=== PATIENT | female | born 1980 | race Caucasian/White ===

== ENCOUNTER → 2016-08-08 | Outpatient (CLI) | payer BC ==
[~2016-08-08] MED LIST: GADAVIST IV PRN
--- NOTE | 2016-08-08 19:38 | DIAGNOSTIC IMAGING REPORT ---
MRI OF THE BRAIN COMBO CLINICAL HISTORY: Headaches. COMPARISON STUDY: No priors. TECHNIQUE: MRI of the brain was performed utilizing various T1 and T2-weighted sequences in the axial, sagittal, and coronal planes. Contrast-enhanced sequences were acquired following the administration of 11 cc of Gadavist. FINDINGS: Brain parenchyma: The brain parenchyma is normal in appearance. There is no hemorrhage or mass effect. There is no restricted diffusion to suggest acute ischemia. No enhancing mass lesion is identified on the postcontrast images. Mccann-white matter differentiation is preserved. No extra-axial fluid collection is seen. The cerebellar tonsils are normal in configuration. Ventricles, sulci, and cisterns: Normal in configuration. Pituitary and sella: Unremarkable. Intracranial vasculature: Normal flow voids are maintained at the skull base. Orbits: The bony orbits are grossly intact. Orbital contents are normal in appearance. Sinuses and mastoids: Clear. Calvarium: Unremarkable. Soft tissues: Scattered sebaceous cysts are incidentally noted. The largest is in the frontal scalp the vertex and measures 9 mm. Cervical cord: Partially visualized cervical spinal cord is normal in morphology and signal intensity. IMPRESSION: No acute intracranial abnormality. Electronically signed by: Alonzo Olsen M.D. 08/08/2016 7:37 PM Dictated Date/Time: 08/08/2016 7:33 PM
== END | disposition home or self-care (01) ==
LOC: C.MRI 17:50
PROVIDERS: ATTEND Psychiatry & Neurology Neurology
DX: G43.909 Migraine, unspecified, not intractable, without status migrainosus (principal); R51 Headache

== ENCOUNTER → 2017-02-15 | Outpatient (CLI) | payer BC ==
[2017-02-18 20:36] LABS: GLUTAMIC ACID DECARBOXYLASE-65 85 IU/mL (<5); ISLET CELL AB POSITIVE (NEGATIVE); ISLET CELL AB TITER 80 JDF units
== END | disposition home or self-care (01) ==
LOC: C.LAB1850 12:02
PROVIDERS: ATTEND Internal Medicine Endocrinology, Diabetes & Metabolism
DX: E11.65 Type 2 diabetes mellitus with hyperglycemia (principal)

== ENCOUNTER 2017-09-27 12:01 | Emergency (ER) | payer BC ==
[~2017-09-27] VITALS: Ht 165.1 cm; Wt 103.8 kg
[2017-09-27 12:07] VITALS: TEMP 36.7; Ht 165.1 cm; Wt 103.8 kg
[2017-09-27] MEDS ORDERED: SODIUM CHLORIDE 0.9% 1000ML 2,000 ML IV STA (12:26)
[2017-09-27 12:55] LABS: BASO % 0.5 %; BASO ABS # 0.03 K/uL (0-0.2); EOS % 3.5 %; EOS ABS # 0.22 K/uL (0-0.5); HEMATOCRIT 43.3 % (37-47); HEMOGLOBIN 15.1 g/dL (12.0-16.0); IG# 0.01 K/uL (0.00-0.02); LYMPH % 34.5 %; LYMPH ABS # 2.18 K/uL (1.2-3.4); MEAN CELL VOLUME 78.6 fL (80-100); MEAN CORPUSCULAR HEMOGLOBIN 27.4 pg (25-34); MEAN CORPUSCULAR HGB CONC 34.9 g/dl (32-36); MEAN PLATELET VOLUME 10.2 fL (7.4-10.4); MONO ABS # 0.38 K/uL (0.11-0.59); NEUT % 55.3 %; PLATELET COUNT 257 K/uL (130-400); RED CELL DISTRIBUTION WIDTH SD 39.1 fL (36.4-46.3); WHITE BLOOD COUNT 6.32 K/uL (4.8-10.8)
--- NOTE | 2017-09-27 12:59 | DIAGNOSTIC IMAGING REPORT ---
CHEST ONE VIEW PORTABLE CLINICAL HISTORY: Weakness, hyperglycemia. COMPARISON STUDY: No previous studies for comparison. FINDINGS: The cardiac and mediastinal contours are normal. There is no evidence of focal pulmonary consolidation. There is no evidence of failure. No pleural effusions are visualized.[ There are minor subsegmental atelectatic changes at the right lung base. IMPRESSION: No active disease in the chest. Electronically signed by: Jerry Vega M.D. 09/27/2017 12:58 PM Dictated Date/Time: 09/27/2017 12:57 PM
[2017-09-27 13:21] LABS: ALBUMIN 4.1 gm/dl (3.4-5.0); CALCIUM 8.9 mg/dl (8.5-10.1); CREATININE 1.09 mg/dl (0.60-1.20); POTASSIUM 3.9 mmol/L (3.5-5.1); TOTAL PROTEIN 7.6 gm/dl (6.4-8.2)
[2017-09-27] MEDS ORDERED: NovoLIN-R INSULIN PER UNIT CHARGE IV STA (13:47)
[2017-09-27] MEDS ORDERED: INSDGI SC (14:46)
[2017-09-27] MEDS ORDERED: LEVO200T PO (14:46)
[2017-09-27] MEDS ORDERED: NORT50CA PO (14:46)
[2017-09-27] MEDS ORDERED: NVLGI7030 SC (14:46)
[2017-09-27 14:57] VITALS: BP 141/99; PULSE 89; O2SAT 98
--- NOTE | 2017-09-27 18:22 | EMERGENCY ROOM VISIT NOTE ---
History Report prepared by Celia: Steve Toledo Under the Supervision of: Dr. Archie Raya D.O. First contact with patient: 12:16 Chief Complaint: HYPERGLYCEMIA Stated Complaint: HIGH BLOOD SUGAR & KETONES, TYPE 1 DIABETIC History of Present Illness The patient is a 37 year old female who presents to the Emergency Room with complaints of constant hyperglycemia beginning a few days ago. She has a history of Type I diabetes and was diagnosed a little over a year ago. She states that she spoke with her PCP over the phone and was told to present to the ED. The patient states that her blood sugar has been running in the 300 to 500's. She has been peeing more frequently and has been much more thirsty. She has no pain. She has absolutely no other complaints. She states that she has had ketones in her urine recently. She also complains of nausea, fatigue and increased urinary frequency. Pt denies headache, change in vision, fevers, chest pain, shortness of breath, sore throat, vomiting, diarrhea, pain with urination, rashes, and melena. She notes that she recently had her sliding scale insulin dose increased (10 to 13). She has a history of hysterectomy. Source of History: patient Onset: A few days ago Symptom Intensity: blood sugar in the 300 to 500's Quality: other (hyperglycemia) Timing: constant Associated Symptoms: + nausea, + urinary symptoms (increased frequency), No fevers, No headache, No sorethroat, No chest pain, No SOB, No vomiting, No melena, No diarrhea Review of Systems See HPI for pertinent positives & negatives. A total of 10 systems reviewed and were otherwise negative. Past Medical & Surgical Medical Problems: (1) Type I diabetes mellitus Family History No pertinent family history stated. Social History Smoking Status: Never Smoker Housing Status: lives with family Occupation Status: employed Current/Historical Medications Scheduled Insulin Aspart 70/30 (Novolog Mix 70/30), 13 UNITS SC WM Insulin Glargine (Lantus), 39 UNITS SC QPM Levothyroxine Sodium (Synthroid), 200 MCG PO DAILY Nortriptyline (Pamelor), 50 MG PO QAM Allergies Coded Allergies: Amoxicillin (Unverified Adverse Reaction, Severe, HIVES, 09/27/17) Cefuroxime (Unverified Adverse Reaction, Severe, HIVES, 09/27/17) Ciprofloxacin (Unverified Adverse Reaction, Severe, HIVES, 09/27/17) Erythromycin (Unverified Adverse Reaction, Severe, HIVES, 09/27/17) Iodinated Diagnostic Agents (Unverified Adverse Reaction, Severe, NAUSEA, 09/27/17) Sulfamethoxazole w/Trimethoprim (Unverified Adverse Reaction, Severe, HIVES, 09/27/17) Physical Exam Vital Signs Date Time Temp Pulse Resp B/P (MAP) Pulse Ox O2 Delivery O2 Flow Rate FiO2 09/27/17 14:57 89 16 141/99 98 09/27/17 13:38 95 18 132/85 98 Room Air 09/27/17 12:07 36.7 108 20 152/98 98 Room Air Physical Exam GENERAL: Sitting up in bed, alert, well appearing, well nourished, no distress, non-toxic EYE EXAM: normal conjunctiva. OROPHARYNX: no exudate, no erythema, lips, buccal mucosa, and tongue normal and mucous membranes are moist NECK: supple, no nuchal rigidity, no adenopathy, non-tender LUNGS: Clear to auscultation. Normal chest wall mechanics HEART: no murmurs, S1 normal and S2 normal ABDOMEN: abdomen soft, non-tender, normo-active bowel sounds, no masses, no rebound or guarding. BACK: Back is symmetrical on inspection and there is no deformity, no midline tenderness, no CVA tenderness. SKIN: no rashes and no bruising UPPER EXTREMITIES: upper extremities are grossly normal. LOWER EXTREMITIES: No pitting edema. NEURO EXAM: Normal sensorium, cranial nerves II-XII grossly intact, normal speech, no gross weakness of arms, no gross weakness of legs. Medical Decision & Procedures ER Provider Diagnostic Interpretation: Radiology results as stated below per my review and the radiologist's interpretation: CHEST ONE VIEW PORTABLE FINDINGS: The cardiac and mediastinal contours are normal. There is no evidence of focal pulmonary consolidation. There is no evidence of failure. No pleural effusions are visualized.[ There are minor subsegmental atelectatic changes at the right lung base. IMPRESSION: No active disease in the chest. Electronically signed by: Jerry Vega M.D. 09/27/2017 12:58 PM Laboratory Results 09/27/17 12:40 Red Blood Count 5.51, Mean Corpuscular Volume 78.6, Mean Corpuscular Hemoglobin 27.4, Mean Corpuscular Hemoglobin Concent 34.9, Mean Platelet Volume 10.2, Neutrophils (%) (Auto) 55.3, Lymphocytes (%) (Auto) 34.5, Monocytes (%) (Auto) 6.0, Eosinophils (%) (Auto) 3.5, Basophils (%) (Auto) 0.5, Neutrophils # (Auto) 3.50, Lymphocytes # (Auto) 2.18, Monocytes # (Auto) 0.38, Eosinophils # (Auto) 0.22, Basophils # (Auto) 0.03 09/27/17 12:40 Test 09/27/17 12:40 09/27/17 13:18 09/27/17 14:37 White Blood Count 6.32 K/uL (4.8-10.8) Red Blood Count 5.51 M/uL (4.2-5.4) Hemoglobin 15.1 g/dL (12.0-16.0) Hematocrit 43.3 % (37-47) Mean Corpuscular Volume 78.6 fL (80-100) Mean Corpuscular Hemoglobin 27.4 pg (25-34) Mean Corpuscular Hemoglobin Concent 34.9 g/dl (32-36) Platelet Count 257 K/uL (130-400) Mean Platelet Volume 10.2 fL (7.4-10.4) Neutrophils (%) (Auto) 55.3 % Lymphocytes (%) (Auto) 34.5 % Monocytes (%) (Auto) 6.0 % Eosinophils (%) (Auto) 3.5 % Basophils (%) (Auto) 0.5 % Neutrophils # (Auto) 3.50 K/uL (1.4-6.5) Lymphocytes # (Auto) 2.18 K/uL (1.2-3.4) Monocytes # (Auto) 0.38 K/uL (0.11-0.59) Eosinophils # (Auto) 0.22 K/uL (0-0.5) Basophils # (Auto) 0.03 K/uL (0-0.2) RDW Standard Deviation 39.1 fL (36.4-46.3) RDW Coefficient of Variation 14.0 % (11.5-14.5) Immature Granulocyte % (Auto) 0.2 % Immature Granulocyte # (Auto) 0.01 K/uL (0.00-0.02) Urine Color YELLOW Urine Appearance ERROR (CLEAR) Urine pH 5.0 (4.5-7.5) Urine Specific [place] 1.043 (1.000-1.030) Urine Protein NEG (NEG) Urine Glucose (UA) 3+ (NEG) Urine Ketones 1+ (NEG) Urine Occult Blood NEG (NEG) Urine Nitrite NEG (NEG) Urine Bilirubin NEG (NEG) Urine Urobilinogen NEG (NEG) Urine Leukocyte Esterase NEG (NEG) Urine WBC (Auto) 1-5 /hpf (0-5) Urine RBC (Auto) 0-4 /hpf (0-4) Urine Hyaline Casts (Auto) 1-5 /lpf (0-5) Urine Epithelial Cells (Auto) >30 /lpf (0-5) Urine Bacteria (Auto) NEG (NEG) Urine Test NEG (NEG) Anion Gap 6.0 mmol/L (3-11) Est Creatinine Clear Calc Drug Dose 84.5 ml/min Estimated GFR () 75.1 Estimated GFR (Non- 64.8 BUN/Creatinine Ratio 7.8 (10-20) Calcium Level 8.9 mg/dl (8.5-10.1) Total Bilirubin 0.5 mg/dl (0.2-1) Direct Bilirubin 0.1 mg/dl (0-0.2) Aspartate Amino Transf (AST/SGOT) 14 U/L (15-37) Alanine Aminotransferase (ALT/SGPT) 29 U/L (12-78) Alkaline Phosphatase 134 U/L (45-117) Total Protein 7.6 gm/dl (6.4-8.2) Albumin 4.1 gm/dl (3.4-5.0) Lipase 254 U/L (73-393) Beta-Hydroxybutyric Acid 3.87 mg/dL (0.2-2.81) Venous Blood pH 7.40 (7.36-7.41) Venous Blood Partial Pressure CO2 44 mmHg (38.0-50.0) Venous Blood Partial Pressure O2 21 mmHg Venous Blood HCO3 27 mmol/L Venous Blood Oxygen Saturation < 60.0 % Venous Blood Base Excess 1.5 mEq/L Bedside Glucose 212 mg/dl (70-90) Laboratory results per my review. Medications Administered Medications (Trade) Dose Ordered Sig/Dequan Route Start Time Stop Time Status Last Admin Dose Admin Sodium Chloride 2,000 ml @ 999 mls/hr Q2H1M STAT IV 09/27/17 12:26 09/27/17 14:26 DC 09/27/17 13:03 999 MLS/HR Insulin Human Regular (novoLIN-R U-100 PER UNIT) 5 units NOW STAT IV 09/27/17 13:47 09/27/17 13:48 DC 09/27/17 13:56 5 UNITS ED Course ED COURSE: Vital signs were reviewed and showed tachycardia and hypertension. The patients medical record was reviewed The above diagnostic studies were performed and reviewed. ED treatments and interventions as stated above. 1221: The patient was evaluated in room A4B. A complete history and physical examination was performed. 1226: Ordered Sodium Chloride 2000 ml @ 999 mls/hr IV. 1347: Ordered Novolin-R U-100 per unit 5 units IV. 1440: Upon reevaluation, the patient is resting comfortably. I discussed my findings with the patient and she understands and agrees with the treatment plan. Based on the patients age, coexisting illnesses, exam and lab findings the decision to treat as an outpatient was made. The patient remained stable while under my care. The patient appeared well at the time of discharge. Medical Decision Differential Diagnosis includes but is not limited to dehydration, stroke, anemia, hypoglycemia, hyponatremia, hypernatremia, urinary tract infection, pneumonia, bronchitis, sepsis, gastroenteritis, additional abdominal pathology, metabolic abnormalities and infections. Patient is a 37-year-old female that presents to the ER was a type I diabetic recently diagnosed within the past year referred in by her head mechanic. They are concerned that she may be in DKA. She did have +1 ketones and a beta hydroxybutyric acid of 4. No gap. No acidosis. She had a normal pH. CO2 was normal. She was given fluids and IV insulin. BSG came down to 212. She had no other complaints. There is no signs of infection. UA and chest x-ray were unremarkable. Discussed with her head mechanic. Patient was discharged follow-up with her as an outpatient. Discussed with Pt concerning signs and symptoms to watch out for. Pt was instructed to follow up with their PCP and discussed with the patient their option to return to the ED at anytime for persistent or worsening symptoms. The appropriate anticipatory guidance and out- patient management, including indications for return to the emergency department , were explained at length to the patient and understood. Medication Reconcilliation Current Medication List: was personally reviewed by me Blood Pressure Screening Patient's blood pressure: Elevated blood pressure Blood pressure disposition: Referred to PCP Consults Time Called: 1400 Consulting Physician: Dr. Mckinley - Endocrinology Returned Call: 1430 I reviewed the patient's case with Dr. Mckinley. Impression Primary Impression: Hyperglycemia Scribe Attestation The scribe's documentation has been prepared under my direction and personally reviewed by me in its entirety. I confirm that the note above accurately reflects all work, treatment, procedures, and medical decision making performed by me. Departure Information Dispostion Home / Self-Care Referrals Camden Zuñiga M.D. (PCP) Forms HOME CARE DOCUMENTATION FORM, IMPORTANT VISIT INFORMATION, WORK / SCHOOL INSTRUCTIONS Patient Instructions ED Hyperglycemia Diabetic, My [facility] Additional Instructions Please follow up with your primary care doctor with in the next 24 hours. Any worsening of your symptoms, please return to the ED immediately. This includes any fevers greater than 100.4, worsening pain, chest pain, shortness breath, persistent nausea, vomiting, unable to eat or drink, or any other concerning signs or symptoms from your standpoint. Please contact your head mechanic when you leave her today and discuss additional management of her blood sugars. She should be able to review the labs.
== END 2017-09-27 14:59 | disposition home or self-care (01) ==
LOC: C.EDB 12:02 → C.EDA 14:59
DX: E10.65 Type 1 diabetes mellitus with hyperglycemia (principal); R03.0 Elevated blood-pressure reading, without diagnosis of hypertension; R53.83 Other fatigue; R82.4 Acetonuria; Z79.4 Long term (current) use of insulin; Z88.0 Allergy status to penicillin; Z88.1 Allergy status to other antibiotic agents; Z88.2 Allergy status to sulfonamides; Z91.041 Radiographic dye allergy status